=== PATIENT | female | born 1975 | race Caucasian/White ===

== ENCOUNTER 2020-07-25 09:45 | Emergency (ER) | payer MEDICAID ==
[~2020-07-25] VITALS: Ht 167.6 cm; Wt 74.8 kg
[2020-07-25 10:18] VITALS: BP 110/74
--- NOTE | 2020-07-25 11:04 | NUR ---
RIGHT FACIAL SWELLING UNDER EYES AND ALONG JAWLINE NOTED.
[2020-07-25] MEDS ORDERED: normal saline 1000ML IV soln IVB ONE (11:30)
[2020-07-25] MEDS ORDERED: proCHLORperazine 10 MG/2 ml inj IV ONE (11:30)
[2020-07-25] MEDS ORDERED: diphenhydrAMINE 50 mg/ml inj IV ONE (11:30)
[2020-07-25] MEDS ORDERED: SUMA25TA35 PO (13:09)
[2020-07-25] MEDS ORDERED: PROC5TAB56 PO (13:09)
== END 2020-07-25 13:25 | disposition home or self-care (01) ==
LOC: ER 09:45
DX: G43.909 Migraine, unspecified, not intractable, without status migrainosus (principal); H92.01 Otalgia, right ear; J02.9 Acute pharyngitis, unspecified; Z79.899 Other long term (current) drug therapy
CPT/HCPCS: 99283